=== PATIENT | male | born 2000 | race Caucasian/White ===

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

== ENCOUNTER 2022-04-16 02:17 | Emergency (ER) | payer OTHER, SELFPAY ==
[2022-04-16 02:32] VITALS: BP 153/67; PULSE 81; RESP 16; TEMP 36.4; O2SAT 97; BMI 22.3
--- NOTE | 2022-04-16 07:16 | ED.DENTAL ---
HPI - Dental/Oral General Chief complaint: Dental/Oral Stated complaint: Dental pain Time Seen by Provider: 04/16/22 07:04 Source: patient Mode of arrival: ambulatory Limitations: no limitations History of Present Illness MD Complaint: tooth pain Location: Tooth # (31) Onset (ago): month(s) (on and off for months but has gotten worse his dentist keeps canceling on him) Duration: intermittent Severity: moderate Relieving factors: nothing Exacerbating factors: chewing, cold and heat Context: trauma (mechanism) Associated symptoms: gum swelling Treatment prior to arrival: none Related Data Previous Rx's Medication Instructions Recorded amoxicillin 875 mg-potassium 1 tab PO BID #14 tab 04/16/22 clavulanate 125 mg tablet ibuprofen 600 mg tablet 600 mg PO Q6H PRN #30 tab 04/16/22 Allergies Allergy/AdvReac Type Severity Reaction Status Date / Time No Known Allergies Allergy Verified 04/16/22 02:37 Review of Systems Review of Systems: Constitutional : No Fever, No Chills ENT/Mouth : No swallowing difficulty, no change in voice, positive dental pain, positive jaw pain, no facial swelling Eyes: No Eye Pain, No Swelling Cardiovascular : No Chest Pain, No SOB Respiratory : No Cough, No Sputum Gastrointestinal : No Nausea, No Vomiting, No Diarrhea Genitourinary : No Dysuria Musculoskeletal : No Myalgias Skin : No rash Neuro : No Weakness, No Numbness, No Headache PMFSH Past Medical History Attestation statement: The following information was validated with the patient. Medical History No pertinent past medical history Social History Social History (Updated 04/16/22 @ 07:21 by Ana Langley DO) Patient Tobacco Use Status: Never used Tobacco Advance Directives: No Physical Exam Vital Signs: Vital Signs: Last Vital Signs Temp 97.6 F 04/16/22 02:32 Pulse 81 04/16/22 02:32 Resp 16 04/16/22 02:32 BP 153/67 H 04/16/22 02:32 Pulse Ox 97 04/16/22 02:32 BMI result Body Mass Index 22.3 Appearance: Alert. Oriented X3. No acute distress. Eyes: Pupils equal, round and reactive to light. ENT: Pharynx normal. no trismus - R lower molar dental old fracture noted no abscess noted mild gingival swelling no sublingual or submandibular swelling seen Neck: Normal inspection. Neck supple. CVS: Pulses normal. Respiratory: No respiratory distress. Abdomen: Soft and non-tender. Skin: Skin warm and dry. Normal skin color. Extremities: No lower extremity edema. Neuro: Oriented X 3. No motor deficit. No sensory deficit. MDM - Dental/Oral MDM Narrative Medical decision making narrative: 21 yo male with no sig PMH here with dental pain to right lower molar - no signs of abscess no deeper space infection concerns not toxic appearing normal opening of mouth no submandibular or sublingual swelling - will see his dentist start on motrin and augmentin Discharge Plan Discharge Clinical Impression: Toothache Patient Disposition: Home, Self-Care Instructions: Toothache (ED) Additional Instructions: return to ED for any worsening symptoms or concerns please see a dentist as soon as possible Prescriptions: New ibuprofen 600 mg tablet 600 mg PO Q6H PRN (Reason: pain) Qty: 30 0RF amoxicillin-pot clavulanate 875-125 mg tablet 1 tab PO BID Qty: 14 0RF Stand Alone Forms: Work/School Release
== END 2022-04-16 07:28 | disposition home or self-care (01) ==
PROVIDERS: Emergency Provider Emergency Medicine
DX: K08.89 Other specified disorders of teeth and supporting structures (principal); Z79.899 Other long term (current) drug therapy
CPT/HCPCS: 99283

== ENCOUNTER 2022-04-23 21:26 | Emergency (ER) | payer OTHER, SELFPAY ==
--- NOTE | ~2022-04-23 | XR_ITS ---
EXAMINATION: XR ANKLE, LEFT CLINICAL INFORMATION: Ankle injury COMPARISON: None TECHNIQUE: AP, lateral, and mortise views of the left ankle. FINDINGS: Soft tissue spine of lateral malleolus. No fracture. No dislocation. XR/XR ankle LT min 3V IMPRESSION: Soft tissue swelling at lateral malleolus. No acute osseous abnormality.
[2022-04-23 21:59] VITALS: BP 115/55; PULSE 62; RESP 18; TEMP 36; O2SAT 98; BMI 22.3
--- NOTE | 2022-04-24 00:32 | ED.LOWEXIN ---
HPI - Extremity Injury (Lower) General Chief Complaint: Extremity Injury, Lower Stated Complaint: ankle injury Time Seen by Provider: 04/24/22 00:18 Source: patient Mode of arrival: ambulatory History of Present Illness HPI Narrative: 21-year-old male without significant past medical history presents with having a rolled his left ankle in an inversion manner while playing basketball. There is mild swelling noted to the left lateral malleolus, otherwise neurovascularly intact. Related Data Previous Rx's Medication Instructions Recorded amoxicillin 875 mg-potassium 1 tab PO BID #14 tab 04/16/22 clavulanate 125 mg tablet ibuprofen 600 mg tablet 600 mg PO Q6H PRN #30 tab 04/16/22 Allergies Allergy/AdvReac Type Severity Reaction Status Date / Time No Known Allergies Allergy Verified 04/23/22 21:59 Review of Systems Review of Systems: Pertinent positives and negatives as stated in HPI 10 point review of systems is otherwise negative. [facility] Past Medical History Source: nursing notes reviewed Medical History No pertinent past medical history Social History Social History Patient Tobacco Use Status: Never used Tobacco Advance Directives: No Physical Exam Vital Signs: Vital Signs: Last Vital Signs Temp 96.8 F 04/23/22 21:59 Pulse 62 04/23/22 21:59 Resp 18 04/23/22 21:59 BP 115/55 L 04/23/22 21:59 Pulse Ox 98 04/23/22 21:59 BMI result Body Mass Index 22.3 VITAL SIGNS: Reviewed. GENERAL: Well developed, well nourished, in no acute distress. HEAD: Normocephalic/atraumatic EYES: PERRLA, EOMI EARS: Ext canals without abnormality OROPHARYNX: no oral lesions noted, posterior pharynx clear LUNGS: Normal breath sounds. CARDIOVASCULAR: Regular rate and rhythm without noted murmurs ABDOMEN: Soft, non-tender, non-distended with bowel sounds. MUSCULOSKELETAL: No tenderness, deformities, or effusions noted on gross inspection. EXTREMITIES: No cyanosis, clubbing or edema; LEFT ANKLE: Swelling to left lateral malleolus, palpable DP/PT, cap refill less than 3 seconds SKIN: Inspection of the skin reveals no rashes NEUROLOGIC: Alert and oriented x 4. Course Course Course Narrative: 21-year-old male with history and clinical presentation consistent with left ankle sprain after review of x-rays negative for fracture or dislocation. Discharge Plan Discharge Clinical Impression: Left ankle sprain Patient Disposition: Home, Self-Care Instructions: Ankle Sprain (ED), R.I.C.E. Treatment (ED), Ice Pack Application (ED), Crutch Instructions (ED) Additional Instructions: 1. You have been provided with printed instructions on rest, ice, elevation. As well as crutch use. Recommend [id number] Tylenol/ibuprofen as needed for pain control. 2. Please follow-up with primary care provider next 2-3 days for re-evaluation. Return to the ER for worsening symptoms. Prescriptions: No Action ibuprofen 600 mg tablet 600 mg PO Q6H PRN (Reason: pain) Qty: 30 0RF amoxicillin-pot clavulanate 875-125 mg tablet 1 tab PO BID Qty: 14 0RF Stand Alone Forms: Work/School Release
[2022-04-24] MEDS: Acetaminophen 325 MG TABLET 975 MG PO (01:07)
[2022-04-24] MEDS: Ibuprofen 400 MG TABLET PO (01:08)
== END 2022-04-24 01:14 | disposition home or self-care (01) ==
PROVIDERS: Emergency Provider Student in an Organized Health Care Education/Training Program
DX: S93.402A Sprain of unspecified ligament of left ankle, initial encounter (principal); X50.1XXA Overexertion from prolonged static or awkward postures, initial encounter; Y93.67 Activity, basketball; Y92.310 Basketball court as the place of occurrence of the external cause; Y99.9 Unspecified external cause status
CPT/HCPCS: 73610; 99282; 99283

== ENCOUNTER → 2023-07-16 14:46 | Outpatient (BNVA) | payer OTHER, SELFPAY | PROVIDERS: Visit Provider Internal Medicine | DX: S01.01XA Laceration without foreign body of scalp, initial encounter (principal); W22.09XA Striking against other stationary object, initial encounter | CPT/HCPCS: 99203 ==

== ENCOUNTER → 2023-07-19 13:49 | Outpatient (BNVA) | payer OTHER, SELFPAY | PROVIDERS: Visit Provider Internal Medicine | DX: S01.01XA Laceration without foreign body of scalp, initial encounter (principal); W22.8XXA Striking against or struck by other objects, initial encounter | CPT/HCPCS: 99213 ==

== ENCOUNTER → 2023-07-26 13:17 | Outpatient (BNVA) | payer OTHER, SELFPAY | PROVIDERS: Visit Provider Internal Medicine | DX: S01.01XA Laceration without foreign body of scalp, initial encounter (principal); W22.09XA Striking against other stationary object, initial encounter; R51.9 Headache, unspecified | CPT/HCPCS: 99212; 99213 ==